=== PATIENT | female | born 1965 | race Hispanic/Latino ===

== ENCOUNTER 2018-09-05 03:25 | Emergency (ER) | payer OTHER ==
[2018-09-05] MEDS ORDERED: PENICILLIN V POTASSIUM 500 MG TABLET ONE (03:54)
[2018-09-05] MEDS ORDERED: MORPHINE SULFATE 4 MG/1ML SYG ONE (03:57)
== END 2018-09-05 04:51 | disposition home or self-care (01) ==
LOC: EDH 03:25
DX: K08.89 Other specified disorders of teeth and supporting structures (principal); Z98.51 Tubal ligation status; Z72.0 Tobacco use
CPT/HCPCS: 96372; 99283; J2270

== ENCOUNTER 2018-10-23 17:50 | Emergency (ER) | payer OTHER ==
[2018-10-23] MEDS ORDERED: GUAIFENESIN-CODEINE 5 ML SYRUP ONE (18:35)
[2018-10-23] MEDS ORDERED: BENZONATATE 100 MG CAPSULE PO ONE (18:35)
== END 2018-10-23 20:29 | disposition home or self-care (01) ==
LOC: EDH 17:50
DX: J06.9 Acute upper respiratory infection, unspecified (principal); Z72.0 Tobacco use
CPT/HCPCS: 87804

== ENCOUNTER 2018-12-22 18:36 | Emergency (ER) | payer OTHER ==
[2018-12-22] MEDS ORDERED: ONDANSETRON HCL 4 MG/2 ML VIAL ONE (18:52)
[2018-12-22 19:03] LABS: BASOPHILS % (AUTO) 0.7 % (0.0-5.0); EOSINOPHILS % (AUTO) 0.2 % (0.0-8.0); HEMATOCRIT 29.9 % (36-48); LYMPHOCYTES % (AUTO) 21.7 % (21.0-51.0); MEAN CORPUSCULAR HEMOGLOBIN 18.3 pg (27.0-33.0); MEAN CORPUSCULAR HGB CONC 30.3 g/dL (32.0-36.0); MEAN CORPUSCULAR VOLUME 60.3 fL (79-99); MONOCYTES % (AUTO) 5.5 % (3.0-13.0); NEUTROPHILS % (AUTO) 71.9 % (40.0-77.0); PLATELET COUNT (AUTO) 545 K/uL (130-400); RED BLOOD CELL COUNT(AUTO) 4.97 MIL/uL (4.00-5.50); RED CELL DISTRIBUTION WIDTH 18.6 % (11.0-15.5); WHITE BLOOD COUNT (AUTO) 11.3 K/uL (4.8-10.8)
[2018-12-22 19:20] LABS: CREATININE 0.7 mg/dL (0.5-1.5); POTASSIUM 3.8 mmol/L (3.5-5.1)
[2018-12-22 19:26] LABS: ALBUMIN 3.3 g/dL (3.5-5.0); BILIRUBIN,TOTAL 0.2 mg/dL (0.2-1.0); TOTAL PROTEIN, SERUM 7.8 g/dL (6.0-8.3)
[2018-12-22 19:32] LABS: APPEARANCE,URINE Cloudy (CLEAR); BILIRUBIN,URINE Negative (NEGATIVE); COLOR,URINE Yellow (YELLOW); GLUCOSE, URINE (UA) Negative (NEGATIVE); KETONES,URINE Negative (NEGATIVE); LEUKOCYTE ESTERASE ,URINE Negative (NEGATIVE); NITRATE,URINE Negative (NEGATIVE); OCCULT BLOOD,URINE Negative (NEGATIVE); PH,URINE >=9.0 (5.0-8.0); PROTEIN,URINE Negative (NEGATIVE); UROBILINOGEN,URINE 0.2 mg/dL (0.2-1.0)
[2018-12-22 19:55] LABS: BACTERIA,URINE Few /HPF (None Seen); RBC,URINE 0-1 /HPF (0-1); SQUAMOUS EPITHELIAL CELL,UR Rare /HPF (0-2); WBC,URINE 0-1 /HPF (0-1)
[2018-12-22 19:56] LABS: AMORPHOUS SEDIMENT,UR Few /LPF (None Seen)
== END 2018-12-22 21:50 | disposition home or self-care (01) ==
LOC: EDH 18:36
DX: R42 Dizziness and giddiness (principal); R11.0 Nausea; Z72.0 Tobacco use
CPT/HCPCS: 36415; 80053; 81001; 85025; 87804 ×2; 93005; 96361; 96374; 99284; J2405